=== PATIENT | male | born 1965 | race Caucasian/White ===

== ENCOUNTER 2016-11-24 08:04 | Emergency (ER) | payer OTHER ==
--- NOTE | 2016-11-24 08:19 | ED Physician Chart ---
Chief Complaint/HPI - Patient Information Date Seen:: 11/24/16 Time Seen:: 08:15 Chief Complaint:: nosebleed History of Present Illness:: pt [place] driving on freeway 1/2 hr before and had sdden start of nosebleed. He pulled off freeway into [place] lot and called ems. ems found him alert but laying on backseat. they noted high bp 230/130...pt has hx of htn and has not taken his bp meds in 6 yrs. he denies cp or GALVEZ. no neuro changes. not dizzy. slt sob from blood drip in throat. bleed seems to have slowed now after ems coached pressure/cold pack and positioning. no other pmh known . pt sp [place] only. has family in area. pt's son now in ed...confirms hx. says dad ate squash for breakfast and drank a beer which is usual. doesnt drink much h2o. freq etoh beer intake is concern to family. unknown what prior htn med was. Historian:: Patient Review of Systems - Review of Systems General/Constitutional: No fever, No chills, No weight loss, No weakness, No diaphoresis, No edema, No loss of appetite Skin: No skin lesions, No rash, No bruising Head: No headache, No light-headedness Eyes: No loss of vision, No pain, No diplopia ENT: No earache, Nasal drainage (nosebleed), No sore throat, No tinnitus Neck: No neck pain, No swelling, No thyromegaly, No stiffness, No mass noted Cardio Vascular: No chest pain, No palpitations, No PND, No orthopnea, No edema Pulmonary: No SOB, No cough, No sputum, No wheezing GI: No nausea, No vomiting, No diarrhea, No pain, No melena, No hematochezia, No constipation, No hematemesis G/U: No dysuria, No frequency, No hematuria Musculoskeletal: No bone or joint pain, No back pain, No muscle pain Endocrine: No polyuria, No polydipsia Psychiatric: No prior psych history, No depression, No anxiety, No suicidal ideation Hematopoietic: No bruising, No lymphadenopathy Allergic/Immuno: No urticaria, No angioedema Neurological: No syncope, No focal symptoms, No weakness, No paresthesia, No headache, No seizure, No dizziness, No confusion, No vertigo Past Medical History - Past Medical History Past Medical History: HTN Social History: Smoker, Alcohol Medication: None Family Medical History - Family Member Mother History Unknown: Yes Physical Exam - Physical Examination General/Constitutional: Awake, Well-developed, well-nourished, Alert, No distress, GCS 15, Non-toxic appearing, Ambulatory Other Gen/Cons comments:: mod obese. calm. no sob. Head: Atraumatic Eyes: Lids, conjuctiva normal, PERRL, EOMI Skin: Nl inspection, No rash, No skin lesions, No ecchymosis, Well hydrated, No lymphadenopathy ENMT: External ears, nose nl, Nasal exam nl, Lips, teeth, gums nl Other ENMT comments:: ongoing nosebleed. Neck: Nontender, Full ROM w/o pain, No JVD, No nuchal rigidity, No bruit, No mass, No stridor Respiratory: Nl effort/Exclusion, Clear to Auscultation, No Wheeze/Rhonchi/Rales Cardio Vascular: RRR, No murmur, gallop, rubs, NL S1 S2 GI: No tenderness/rebounding/guarding, No organomegaly, No hernia, Normal BS's, Nondistended, No mass/bruits, No McBurney tenderness : No CVA tenderness Extremities: No tenderness or effusion, Full ROM, normal strength in all extremities, No edema, Normal digits & nails Neuro/Psych: Alert/oriented, DTR's symmetric, Normal sensory exam, Normal motor strength, Judgement/insight normal, Mood normal, Normal gait, No focal deficits Misc: normal gait, Normal back, No paraspinal tenderness Labs/Radiology/EKG Results - Lab Results Results: Laboratory Tests 11/24/16 11/24/16 11/24/16 08:35 08:35 08:35 WBC 4.5 L RBC 4.90 Hgb 16.4 Hct 45.8 MCV 93.6 MCH 33.4 H MCHC Differential 35.7 RDW 12.4 Plt Count 114 L MPV 9.6 Neutrophils % 59.1 Lymphocytes % 32.3 Monocytes % 4.8 Eosinophils % 2.2 Basophils % 1.6 PT 11.5 INR 1.10 PTT (Actin FS) 26.3 Sodium 133 L Potassium 2.7 L* Chloride 100 Carbon Dioxide 25.4 Anion Gap 10.3 BUN 9 Creatinine 0.6 L Est GFR ( Amer) > 60.0 Est GFR (Non-Af Amer) > 60.0 BUN/Creatinine Ratio 15.0 Glucose 163 H Calcium 8.9 Total Bilirubin 1.5 H AST 85 H ALT 54 H Alkaline Phosphatase 168 H Troponin I Total Protein 8.2 Albumin 3.9 L Globulin 4.3 Albumin/Globulin Ratio 0.9 L Salicylates Ethyl Alcohol 11/24/16 11/24/16 08:35 08:35 WBC RBC Hgb Hct MCV MCH MCHC Differential RDW Plt Count MPV Neutrophils % Lymphocytes % Monocytes % Eosinophils % Basophils % PT INR PTT (Actin FS) Sodium Potassium Chloride Carbon Dioxide Anion Gap BUN Creatinine Est GFR ( Amer) Est GFR (Non-Af Amer) BUN/Creatinine Ratio Glucose Calcium Total Bilirubin AST ALT Alkaline Phosphatase Troponin I 0.02 Total Protein Albumin Globulin Albumin/Globulin Ratio Salicylates < 25.0 L Ethyl Alcohol < 10 - EKG Interpretations EKG Time:: 09:00 Rate & Rhythm: [id number] [address] [place]: 15 Intervals: [id number] Comments:: borderline qt long ED Septic Shock - . Is Septic Shock (SBP<90, OR Lactate>4 mmol\L) present?: No Reassessment (Disposition) - Reassessment Reassessment:: 9;10a pt had sig vasovagal sx after i examined his nose w c/o sev nausea and anxiety. zofran and ativan ordered. no active bleed seen. 10;31am pt cont to do ok w no further nosebleed. have dw pt's son about our plan to observe in ed for a while since bleed was heavy. bp is much improved. rx lisinopril 20/d use of htn med dw family and hold if dizzy and see pmd this week for rechk. nosebleed inst dw pt/family. no rebleed seen through ed stay. concern for high glucose and poss DM onset dw family 11;29 pt is doing well has been ok for dc for some time but k replacement must be over 4 hrs per hosp protocol (was not given po due to gi upset earlier and concern to raise bp w vomiting could cause rebleed... Reassessment Condition:: Improved - Diagnosis Diagnosis:: 1 epistaxis resolved 2 htn severe untreated 3 elevated glucose suspicious for early DM 4 low k - replaced in ED - Aftercare/Follow up Instructions Aftercare/Follow-Up Instructions:: Counseled pt & family regarding lab results/ diagnosis & need follow up - Patient Disposition Discharge/Transfer:: Home Condition at Disposition:: Improved ED Discharge Plan - Patient Disposition Admit/Discharge/Transfer: PT DISCHARGED HOME Condition at Disposition: Stable Prescriptions: Lisinopril 20 mg PO DAILY #20 tablet Instructions: Hypokalemia, Hypertension, [id number], Nosebleed
[2016-11-24 08:43] LABS: % BASOPHILS 1.6 % (0.0-2.0); % EOSINOPHILS 2.2 % (0.0-5.0); % LYMPHOCYTES 32.3 % (20.0-50.0); % MONOCYTES 4.8 % (2.0-10.0); % NEUTROPHILS 59.1 % (40.0-80.0); HEMATOCRIT 45.8 % (39.0-49.0); HEMOGLOBIN 16.4 gm/dL (13.2-17.3); MEAN CELL VOLUME 93.6 fl (80-99); MEAN CORPUSCULAR HEMOGLOBIN 33.4 pg (26.0-30.0); MEAN CORPUSCULAR HGB CONC 35.7 pg (28.0-36.0); MEAN PLATELET VOLUME 9.6 fl; NEUTROPHILE ABSOLUTE 2.6 Th/cmm (1.8-8.0); PLATELET COUNT 114 Th/cmm (150-400); RED CELL DISTRIBUTION WIDTH 12.4 % (11.5-20.0); WHITE BLOOD COUNT 4.5 Th/cmm (4.8-10.8)
[2016-11-24 08:55] LABS: INR 1.1 (0.5-1.4); PROTHROMBIN TIME (TEST) 11.5 SECONDS (9.5-11.5)
[2016-11-24] MEDS ORDERED: Triple Antibiotic 0.94 gm Pkt TP ONE (08:56)
[2016-11-24 09:07] LABS: ALB/GLOB RATIO 0.9 (1.0-1.8); ALKALINE PHOSPHATASE 168 U/L (34-104); ANION GAP 10.3 (7.0-16.0); BILIRUBIN,TOTAL 1.5 mg/dL (0.3-1.0); BUN - UREA NITROGEN 9 mg/dL (7-25); CALCIUM SERUM 8.9 mg/dL (8.6-10.3); CARBON DIOXIDE 25.4 mEq/L (21.0-31.0); CHLORIDE 100 mEq/L (98-107); CREATININE - SERUM 0.6 mg/dL (0.7-1.3); GLUCOSE 163 mg/dL (70-105); SGOT 85 U/L (13-39); SGPT/ALT 54 U/L (7-52); SODIUM SERUM 133 mEq/L (136-145)
[2016-11-24 09:09] LABS: POTASSIUM SERUM 2.7 mEq/L (3.5-5.1)
[2016-11-24] MEDS ORDERED: Sodium Chloride 0.9% 500 ML IV ONE (09:26)
[2016-11-24] MEDS: Potassium Chloride 40 MEQ, Lidocaine 1% 20mL Vial 25 MG in Sodium Chloride 0.9% 250 ML IV ONE ×2 (10:04→10:06)
== END 2016-11-24 14:10 | disposition home or self-care (01) ==
LOC: ER 08:04
DX: R04.0 Epistaxis (principal); I10 Essential (primary) hypertension; R73.9 Hyperglycemia, unspecified; E87.6 Hypokalemia; F17.200 Nicotine dependence, unspecified, uncomplicated
CPT/HCPCS: 99285; 96365; 96366; 96375; 93005; 84484; 36415; 85025; 85610; 80329; 80320; 80053; J2060; J2405; J3480; J7040; A4217; J2001; Z7610